=== PATIENT | male | born 1970 | race Caucasian/White ===

== ENCOUNTER 2017-06-24 08:05 | Emergency (ER) | payer MEDICARE, MEDICAID ==
[~2017-06-24] VITALS: Ht 170.2 cm; Wt 74.2 kg
[~2017-06-24 08:05] MED LIST: DICL100G15 TP; DULO60CA64 PO; GABA-530 PO; GABA-532 PO; MAGN400T6 PO; METO25TA6 PO; NITR0.4T51 SL; OMEP-50 PO; TAMS0.4C32 PO
[2017-06-24 08:13] VITALS: BP 140/96
== END 2017-06-24 10:59 | disposition left against medical advice (07) ==
LOC: ER 08:06
DX: H92.09 Otalgia, unspecified ear (principal); H91.90 Unspecified hearing loss, unspecified ear; Z53.21 Procedure and treatment not carried out due to patient leaving prior to being seen by health care provider

== ENCOUNTER 2017-12-22 19:51 | Emergency (ER) | payer MEDICARE, MEDICAID ==
[~2017-12-22] VITALS: Ht 170.2 cm; Wt 80.0 kg
[2017-12-22 19:58] VITALS: BP 116/67
[2017-12-22] MEDS ORDERED: HYDR-569 PO (20:39)
== END 2017-12-22 20:47 | disposition home or self-care (01) ==
LOC: ER 19:52
DX: T22.10XA Burn of first degree of shoulder and upper limb, except wrist and hand, unspecified site, initial encounter (principal); K21.9 Gastro-esophageal reflux disease without esophagitis; G89.29 Other chronic pain; M54.9 Dorsalgia, unspecified; F12.90 Cannabis use, unspecified, uncomplicated; Z90.49 Acquired absence of other specified parts of digestive tract; Z59.0 Homelessness; Z88.8 Allergy status to other drugs, medicaments and biological substances; W40.1XXA Explosion of explosive gases, initial encounter; Y93.89 Activity, other specified; Y92.89 Other specified places as the place of occurrence of the external cause; Y99.8 Other external cause status
CPT/HCPCS: 99283

== ENCOUNTER 2017-12-28 14:37 | Inpatient (IN) | payer MEDICARE, MEDICAID ==
[~2017-12-28] VITALS: Ht 172.7 cm; Wt 77.5 kg
[~2017-12-28 14:37] MED LIST changes: +HYDR-4383 PO
[2017-12-28 15:10] LABS: BASOPHILS % (AUTO) 0.2 % (0-1); EOSINOPHILS # (AUTO) 0.3 X10'3 (0-0.9); EOSINOPHILS % (AUTO) 2.1 % (0-6); HEMATOCRIT 45.7 % (42.0-52.0); HEMOGLOBIN 15.6 g/dl (14.0-17.9); LYMPHOCYTES # (AUTO) 0.9 X10'3 (1.1-4.8); LYMPHOCYTES % (AUTO) 7.3 % (21-51); MEAN CORPUSCULAR HEMOGLOBIN 30.4 PG (27.0-31.0); MEAN CORPUSCULAR HGB CONC 34.1 % (33.0-36.5); MEAN CORPUSCULAR VOLUME 89.2 FL (78-98); MEAN PLATELET VOLUME 7.1 FL (7.4-10.4); MONOCYTES # (AUTO) 0.9 X10'3 (0-0.9); MONOCYTES % (AUTO) 7.2 % (2-12); NEUTROPHILS # (AUTO) 10.6 X10'3 (1.8-7.7); NEUTROPHILS % (AUTO) 83.2 % (42-75); PLATELET COUNT 316 X10'3 (140-440); RED BLOOD COUNT 5.13 X10'6 (4.70-6.10); RED CELL DISTRIBUTION WIDTH 12.9 % (11.5-14.5); WHITE BLOOD COUNT 12.7 X10'3 (4.5-11.0)
[2017-12-28 15:24] LABS: INR 0.9 INR; PROTHROMBIN TIME 9.5 SECONDS (9.0-12.0)
[2017-12-28] MEDS ORDERED: morphine 4 MG/ML inj SYRINge IV ONE (15:25)
[2017-12-28] MEDS ORDERED: ondansetron/PF 4mg/2ml inj IV ONE ×2 (15:25→19:30)
[2017-12-28] MEDS ORDERED: normal saline 1000ML IV soln IVB ONE (15:25)
[2017-12-28 15:41] LABS: ALANINE AMINOTRANSFERASE 24 U/L (12-78); ALBUMIN 4.1 G/DL (3.4-5.0); ALBUMIN/GLOBULIN RATIO 0.8 (1.1-1.5); ALKALINE PHOSPHATASE 137 IU/L (46-116); ANION GAP 13 (8-16); ASPARTATE AMINO TRANSFERASE 24 U/L (10-37); BILIRUBIN,TOTAL 0.4 MG/DL (0.1-1.0); BLOOD UREA NITROGEN 17 MG/DL (7-18); BUN/CREATININE RATIO 5.6 (5.4-32.0); CALCIUM 9.6 MG/DL (8.5-10.1); CHLORIDE 98 MMOL/L (99-107); CREATININE 3.01 MG/DL (0.60-1.10); GLUCOSE 146 MG/DL (70-104); LIPASE 106 U/L (73-393); POTASSIUM 3.9 MMOL/L (3.5-5.1); SODIUM 133 MMOL/L (135-145); TOTAL CARBON DIOXIDE 22.2 MMOL/L (24-32); TOTAL PROTEIN 9.2 G/DL (6.4-8.2); eGFR 22 ML/MIN
[2017-12-28] MEDS ORDERED: iohexol 300mg/ml 100ml inj. ONE (15:46)
[2017-12-28] MEDS ORDERED: normal saline 1000ml 1,000 ML IV ONE (17:15)
[2017-12-28 17:34] LABS: CLARITY,URINE CLOUDY (Clear); COLOR,URINE YELLOW (Yellow); GLUCOSE, URINE NEGATIVE (Neg); KETONES,URINE NEGATIVE (Neg); LEUKOCYTE ESTERASE ,URINE NEGATIVE (Neg); NITRITES, URINE NEGATIVE (Neg); OCCULT BLOOD,URINE MODERATE (Neg); PROTEIN,URINE 30 mg/dl (Neg); UROBILINOGEN,URINE 0.2 E.U/dL (0.2-1.0)
[2017-12-28 17:42] LABS: UA COLLECTION TYPE CLN CATCH MIDSTREAM
[2017-12-28 17:45] LABS: COARSE GRANULAR CAST 0-3 /LPF (NEGATIVE); MUCUS STRANDS MANY /LPF (Neg); SQUAMOUS EPITHELIAL CELL,UR NONE SEEN /LPF (FEW)
[2017-12-28 17:46] LABS: RENAL CELLS, URINE FEW /HPF; TRANSITIONAL EPI CELLS,URINE MODERATE /HPF; WBC,URINE 0-4 /HPF (0-4)
[2017-12-28 17:47] LABS: AMORPHOUS URATES 1+; BACTERIA,URINE FEW /HPF (Neg)
[2017-12-28 17:48] LABS: URINE AMPHETAMINE SCREEN NEGATIVE (Neg); URINE BARBITUATE SCREEN NEGATIVE (Neg); URINE BENZODIAZEPINES SCREEN NEGATIVE (Neg); URINE CANNABINOID SCREEN POSITIVE (Neg); URINE COCAINE SCREEN NEGATIVE (Neg); URINE METHADONE SCREEN NEGATIVE (Neg); URINE OPIATE SCREEN POSITIVE (Neg); URINE PHENCYCLIDINE SCREEN NEGATIVE (Neg)
[2017-12-28] MEDS ORDERED: nicotine 14mg patch - 24hr TD ONE (19:00)
[2017-12-28] MEDS ORDERED: temazepam 15mg capsule PO PRN (21:00)
[2017-12-28] MEDS ORDERED: morphine 2 MG/ML inj. syringe IV PRN ×2 (21:10)
[2017-12-28] MEDS ORDERED: ondansetron/PF 4mg/2ml inj IV PRN (21:10)
[2017-12-28] MEDS ORDERED: HYDROmorphone 1 mg/ml syringe IV PRN ×2 (21:10)
[2017-12-28] MEDS ORDERED: proCHLORperazine 10 MG/2 ml inj IV PRN (21:10)
[2017-12-28] MEDS ORDERED: diphenhydrAMINE 50 mg/ml inj IV PRN (21:10)
[2017-12-28] MEDS ORDERED: HYDROcodone/acetaminophen 5mg/325mg tablet PO PRN (21:10)
[2017-12-28] MEDS ORDERED: bisacodyl 10mg suppository rectal RC PRN (21:10)
[2017-12-28] MEDS ORDERED: mag hydrox/Alum hydrox/simeth 30ml oral suspension PO PRN (21:10)
[2017-12-28] MEDS ORDERED: HYDROcodone/acetaminophen 10/325mg tab PO PRN (21:10)
[2017-12-28] MEDS ORDERED: magnesium hydroxide 30ml (MOM) UD suspension PO PRN (21:10)
[2017-12-28] MEDS ORDERED: diphenhydrAMINE 25mg capsule PO PRN (21:10)
[2017-12-28] MEDS ORDERED: acetaminophen 325mg tablet PO PRN ×2 (21:10)
[2017-12-28] MEDS ORDERED: acetaminophen 650mg rectal suppository RC PRN (21:10)
[2017-12-28 21:48] LABS: PHOSPHORUS 3.9 MG/DL (2.3-4.5)
[2017-12-28 23:40] VITALS: BP 128/82
[2017-12-28] MEDS: normal saline 1000ml 1,000 ML IV SCH (23:40)
[2017-12-29 01:27] LABS: OCCULT BLOOD STOOL NEGATIVE (Neg)
[2017-12-29 06:00] VITALS: BP 119/77
[2017-12-29 06:12] LABS: BASOPHILS % (AUTO) 0.4 % (0-1); EOSINOPHILS # (AUTO) 0.3 X10'3 (0-0.9); EOSINOPHILS % (AUTO) 4.6 % (0-6); HEMATOCRIT 34.8 % (42.0-52.0); HEMOGLOBIN 12.1 g/dl (14.0-17.9); MEAN CORPUSCULAR HEMOGLOBIN 31.7 PG (27.0-31.0); MEAN CORPUSCULAR HGB CONC 34.7 % (33.0-36.5); MEAN CORPUSCULAR VOLUME 91.4 FL (78-98); MEAN PLATELET VOLUME 7.7 FL (7.4-10.4); MONOCYTES # (AUTO) 0.8 X10'3 (0-0.9); MONOCYTES % (AUTO) 12.8 % (2-12); NEUTROPHILS % (AUTO) 65.2 % (42-75); PLATELET COUNT 213 X10'3 (140-440); RED BLOOD COUNT 3.81 X10'6 (4.70-6.10); RED CELL DISTRIBUTION WIDTH 13.3 % (11.5-14.5); WHITE BLOOD COUNT 6.1 X10'3 (4.5-11.0)
[2017-12-29 06:27] LABS: ALANINE AMINOTRANSFERASE 58 U/L (12-78); ALBUMIN 2.7 G/DL (3.4-5.0); ALBUMIN/GLOBULIN RATIO 0.7 (1.1-1.5); ALKALINE PHOSPHATASE 188 IU/L (46-116); ANION GAP 6 (8-16); ASPARTATE AMINO TRANSFERASE 55 U/L (10-37); BILIRUBIN,TOTAL 0.3 MG/DL (0.1-1.0); BLOOD UREA NITROGEN 18 MG/DL (7-18); CHLORIDE 109 MMOL/L (99-107); CREATININE 1.63 MG/DL (0.60-1.10); GLUCOSE 96 MG/DL (70-104); POTASSIUM 4.2 MMOL/L (3.5-5.1); SODIUM 139 MMOL/L (135-145); TOTAL CARBON DIOXIDE 23.9 MMOL/L (24-32); TOTAL PROTEIN 6.5 G/DL (6.4-8.2); eGFR 45 ML/MIN
[2017-12-29] MEDS ORDERED: pantoprazole 40 MG vial IV SCH (08:00)
[2017-12-29] MEDS ORDERED: nicotine 21mg patch - 24 hr TD SCH (08:00)
[2017-12-29] MEDS ORDERED: docusate sod 100mg capsule PO SCH (08:00)
[2017-12-29] MEDS ORDERED: heparin, porcine 5000 units/ml vial SQ SCH (08:00)
[2017-12-29] MEDS: normal saline 1000ml 1,000 ML IV SCH (09:36)
[2017-12-29 10:00] VITALS: BP 126/79
[2017-12-29 10:13] LABS: C DIFF ANTIGEN NEGATIVE (NEGATIVE); C DIFF SPECIMEN=DIARRHEA? ACCEPTABLE; C DIFFICILE TOXINS A&B NEGATIVE (Neg)
[2017-12-29] MEDS ORDERED: CIPR-230 PO (12:45)
[2017-12-29] MEDS ORDERED: METR500T4 PO (12:45)
== END 2017-12-29 14:05 | disposition home or self-care (01) | DRG 391 ==
LOC: ER 14:37 → ED HOLD 21:10 → EDBEDREQ 22:30 → CMPBEDREQ 23:13 → ORTHO 4S 23:25
PROVIDERS: ADMIT Family Medicine; ATTEND Family Medicine
DX: K52.9 Noninfective gastroenteritis and colitis, unspecified (principal); N17.0 Acute kidney failure with tubular necrosis; F12.10 Cannabis abuse, uncomplicated; B19.20 Unspecified viral hepatitis C without hepatic coma; F32.9 Major depressive disorder, single episode, unspecified; I12.9 Hypertensive chronic kidney disease with stage 1 through stage 4 chronic kidney disease, or unspecified chronic kidney disease; N18.9 Chronic kidney disease, unspecified; G89.4 Chronic pain syndrome; M54.9 Dorsalgia, unspecified; E86.0 Dehydration; K21.9 Gastro-esophageal reflux disease without esophagitis; Z59.0 Homelessness; Z72.0 Tobacco use; Z88.8 Allergy status to other drugs, medicaments and biological substances; Z90.49 Acquired absence of other specified parts of digestive tract; Z79.899 Other long term (current) drug therapy
CPT/HCPCS: 36415; 71045; 74176; 80053; 80305; 81001; 82272; 82948; 83605; 83690; 83880; 84100; 84145; 85025; 85610; 87040; 87045; 87046; 87070; 87324; 87449; 89055; 93005; 96361; 96374; 96375; 96376; 99285; C9113; G0378; J1644; J2270; J2405; J7030; Q9967

== ENCOUNTER 2018-01-13 08:37 | Emergency (ER) | payer MEDICARE, MEDICAID ==
[~2018-01-13] VITALS: Ht 167.6 cm; Wt 81.8 kg
[~2018-01-13 08:37] MED LIST changes: +CIPR-230 PO; -GABA-530 PO; -HYDR-4383 PO; +METR500T4 PO; -TAMS0.4C32 PO
[2018-01-13 08:38] VITALS: BP 120/80
[2018-01-13] MEDS ORDERED: LIDOcaine 1.5% w/epinephrine 1:200,000 5ml ampul IJ ONE (09:00)
[2018-01-13] MEDS ORDERED: SULF1TAB49 PO (09:19)
[2018-01-13] MEDS ORDERED: CEPH-572 PO (09:19)
== END 2018-01-13 09:32 | disposition home or self-care (01) ==
LOC: ER 08:38
DX: L02.31 Cutaneous abscess of buttock (principal); L02.11 Cutaneous abscess of neck; K21.9 Gastro-esophageal reflux disease without esophagitis; G89.29 Other chronic pain; F12.90 Cannabis use, unspecified, uncomplicated; Z90.49 Acquired absence of other specified parts of digestive tract; Z98.890 Other specified postprocedural states; Z59.0 Homelessness; Z88.5 Allergy status to narcotic agent; Z88.8 Allergy status to other drugs, medicaments and biological substances; Z79.2 Long term (current) use of antibiotics; Z79.899 Other long term (current) drug therapy
CPT/HCPCS: 10060; 99283; A6449; J3490

== ENCOUNTER 2018-01-17 08:45 | Emergency (ER) | payer MEDICARE, MEDICAID ==
[~2018-01-17] VITALS: Ht 172.7 cm; Wt 84.1 kg
[~2018-01-17 08:45] MED LIST changes: +CEPH-572 PO; +SULF1TAB49 PO
[2018-01-17 08:50] VITALS: BP 124/70
[2018-01-17] MEDS ORDERED: acetaminophen 325mg tablet PO ONE (09:35)
== END 2018-01-17 09:36 | disposition home or self-care (01) ==
LOC: ER 08:45
DX: L02.31 Cutaneous abscess of buttock (principal); K21.9 Gastro-esophageal reflux disease without esophagitis; G89.29 Other chronic pain; F12.90 Cannabis use, unspecified, uncomplicated; Z86.19 Personal history of other infectious and parasitic diseases; Z90.49 Acquired absence of other specified parts of digestive tract; Z98.890 Other specified postprocedural states; Z59.0 Homelessness; Z88.5 Allergy status to narcotic agent; Z88.6 Allergy status to analgesic agent; Z79.2 Long term (current) use of antibiotics; Z79.899 Other long term (current) drug therapy
CPT/HCPCS: 99282; A6449

== ENCOUNTER 2018-03-05 13:46 | Emergency (ER) | payer MEDICARE, MEDICAID ==
[~2018-03-05] VITALS: Ht 172.7 cm; Wt 88.0 kg
[~2018-03-05 13:46] MED LIST changes: -CEPH-572 PO; -CIPR-230 PO; -METR500T4 PO; -SULF1TAB49 PO
[2018-03-05 13:55] VITALS: BP 121/86
[2018-03-05] MEDS ORDERED: CLIN300C85 PO (14:26)
== END 2018-03-05 14:45 | disposition home or self-care (01) ==
LOC: ER 13:47
DX: L03.116 Cellulitis of left lower limb (principal); K21.9 Gastro-esophageal reflux disease without esophagitis; G89.29 Other chronic pain; Z90.49 Acquired absence of other specified parts of digestive tract; F12.90 Cannabis use, unspecified, uncomplicated; Z88.6 Allergy status to analgesic agent; Z88.8 Allergy status to other drugs, medicaments and biological substances; Z79.2 Long term (current) use of antibiotics; Z79.899 Other long term (current) drug therapy; Z59.0 Homelessness
CPT/HCPCS: 99283

== ENCOUNTER 2018-09-09 17:55 | Emergency (ER) | payer MEDICARE, MEDICAID ==
[~2018-09-09] VITALS: Ht 172.7 cm; Wt 71.0 kg
[~2018-09-09 17:55] MED LIST changes: +CLIN-96 PO
[2018-09-09 18:11] VITALS: BP 132/89
--- NOTE | 2018-09-09 18:38 | NUR ---
HOWIE MENA AT BEDSIDE WITH PT
[2018-09-09] MEDS: HYDROcodone/acetaminophen 10/325mg tab PO ONE (19:05)
[2018-09-09] MEDS: ketorolac trometh inj. 60 MG/2 ML VIAL IM ONE (19:05)
== END 2018-09-09 19:11 | disposition home or self-care (01) ==
LOC: ER 17:56
DX: G89.29 Other chronic pain (principal); M54.5 Low back pain; M62.838 Other muscle spasm; K21.9 Gastro-esophageal reflux disease without esophagitis; F12.90 Cannabis use, unspecified, uncomplicated; Z90.49 Acquired absence of other specified parts of digestive tract; Z98.890 Other specified postprocedural states; Z59.0 Homelessness; Z88.6 Allergy status to analgesic agent; Z79.2 Long term (current) use of antibiotics; Z79.899 Other long term (current) drug therapy
CPT/HCPCS: 96372; 99283; J1885

== ENCOUNTER 2018-12-26 18:37 | Emergency (ER) | payer MEDICARE, MEDICAID ==
[~2018-12-26] VITALS: Ht 170.2 cm; Wt 73.0 kg
[~2018-12-26 18:37] MED LIST changes: -DULO60CA64 PO; +DULO60CA65 PO; +MAGN400T28 PO; -MAGN400T6 PO
[2018-12-26 18:39] VITALS: BP 134/102
== END 2018-12-26 19:02 | disposition left against medical advice (07) ==
LOC: ER 18:37
DX: T63.301A Toxic effect of unspecified spider venom, accidental (unintentional), initial encounter (principal); K21.9 Gastro-esophageal reflux disease without esophagitis; G89.29 Other chronic pain; F32.9 Major depressive disorder, single episode, unspecified; F12.90 Cannabis use, unspecified, uncomplicated; Z53.21 Procedure and treatment not carried out due to patient leaving prior to being seen by health care provider; Z88.6 Allergy status to analgesic agent; Z88.8 Allergy status to other drugs, medicaments and biological substances; Z90.49 Acquired absence of other specified parts of digestive tract; Z98.890 Other specified postprocedural states; Z59.0 Homelessness; Y92.89 Other specified places as the place of occurrence of the external cause

== ENCOUNTER 2019-10-27 14:10 | Emergency (ER) | payer BC, MEDICAID ==
[~2019-10-27] VITALS: Ht 172.7 cm; Wt 90.0 kg
[~2019-10-27 14:10] MED LIST changes: -CLIN-96 PO; +CLIN-97 PO
[2019-10-27] MEDS ORDERED: ketorolac tromethamine 15mg/ml inj. IM ONE (14:45)
[2019-10-27 15:03] VITALS: BP 118/75
== END 2019-10-27 15:04 | disposition home or self-care (01) ==
LOC: ER 14:11
DX: M25.562 Pain in left knee (principal); K21.9 Gastro-esophageal reflux disease without esophagitis; G89.29 Other chronic pain; F32.9 Major depressive disorder, single episode, unspecified; Z90.49 Acquired absence of other specified parts of digestive tract; Z98.890 Other specified postprocedural states; Z88.8 Allergy status to other drugs, medicaments and biological substances; Z79.899 Other long term (current) drug therapy
CPT/HCPCS: 96372; 99283; J1885

== ENCOUNTER 2020-05-22 17:55 | Emergency (ER) | payer BC, MEDICAID ==
[~2020-05-22] VITALS: Ht 172.7 cm; Wt 76.0 kg
[2020-05-22] MEDS ORDERED: ketorolac tromethamine 15mg/ml inj. IM ONE (18:25)
[2020-05-22] MEDS ORDERED: ACET-812 PO (18:32)
[2020-05-22 19:12] VITALS: BP 141/101
== END 2020-05-22 19:15 | disposition home or self-care (01) ==
LOC: ER 17:56
DX: M25.562 Pain in left knee (principal); G89.29 Other chronic pain; K21.9 Gastro-esophageal reflux disease without esophagitis; F32.9 Major depressive disorder, single episode, unspecified; F12.90 Cannabis use, unspecified, uncomplicated; Z86.19 Personal history of other infectious and parasitic diseases; Z90.49 Acquired absence of other specified parts of digestive tract; Z98.890 Other specified postprocedural states; Z59.0 Homelessness; Z88.6 Allergy status to analgesic agent; Z79.2 Long term (current) use of antibiotics; Z79.899 Other long term (current) drug therapy
CPT/HCPCS: 29505; 96372; 99283; J1885